=== PATIENT | female | born 1935 | race Caucasian/White ===

== ENCOUNTER 2016-10-14 14:20 | Emergency (ER) | payer OTHER ==
[~2016-10-14] VITALS: Ht 160 cm; Wt 48.9 kg
[~2016-10-14 14:20] MED LIST: NAPROXEN500 MG PO
[2016-10-14 14:53] LABS: HEMATOCRIT 46.9 % (36.0-46.0); MCH 30.6 PG (29.0-34.0); MCHC 32.8 G/DL (30.0-36.0); MCV 93.1 FL (83-99); MEAN PLAT.VOLUME 10.6 uM^3 (9.5-12.4); PLATELET COUNT 233 K/uL (156-360); RBC DIS.WIDTH-CV 12.9 % (11.8-14.6); RBC DIS.WIDTH-SD 44.3 % (39-53); RED BLOOD COUNT 5.04 M/uL (3.80-5.20); WHITE BLOOD COUNT 8.9 K/uL (4.1-10.2)
[2016-10-14 15:29] LABS: CHLORIDE 103 mEq/L (99-109); POTASSIUM 3.6 mEq/L (3.7-5.4); SODIUM 140 mEq/L (136-147)
[2016-10-14 15:30] LABS: GLUCOSE 163 mg/dL (70-99)
[2016-10-14 15:32] LABS: ANION GAP 16 MEQ/L (2-14)
[2016-10-14 15:34] LABS: GFR ESTIMATE (CALCULATED) 24 mL/min/
[2016-10-14 15:35] LABS: UREA NITROGEN (BUN) 55 mg/dL (9-23)
[2016-10-14 16:49] LABS: TOTAL BILIRUBIN 0.7 mg/dL (0.0-1.0)
[2016-10-14 16:50] LABS: ALKALINE PHOSPHATASE 88 IU/L (3-129)
[2016-10-14 16:52] LABS: DIRECT BILIRUBIN 0.2 mg/dL (0.0-0.3)
[2016-10-14 17:45] LABS: INFLUENZA A VIRAL ANTIGEN NEGATIVE; INFLUENZA B VIRAL ANTIGEN NEGATIVE
[2016-10-14 18:21] LABS: ADD MIUA? YES; BILIRUBIN NEGATIVE; BLOOD SMALL; COLOR YELLOW ((YELLOW)); GLUCOSE (STRIP) NEGATIVE; KETONES NEGATIVE; LEUKOCYTES NEGATIVE; NITRITE NEGATIVE; PROTEIN (STRIP) 100; SPECIFIC GRAVITY 1.024 (1.000-1.030); UROBILINOGEN 0.2 MG/DL (0.2-1.0)
[2016-10-14 18:44] LABS: BACTERIA RARE /HPF; CALCIUM OXALATE CRYSTALS 1+ /HPF; EPITHELIAL CELLS RARE /HPF; HYALINE CASTS 30-40 /LPF; MUCUS 1+ /LPF; RED BLOOD CELLS 0-5 /HPF (0-5); UCUL ADDED? NO
[2016-10-14] MEDS ORDERED: BENTYL20 MG PO (19:03)
[2016-10-14] MEDS ORDERED: KEFLEX500 MG PO (19:03)
[2016-10-14] MEDS ORDERED: ZOFRAN ODT4 MG PO (19:03)
[2016-10-14 19:16] VITALS: BP 118/79
[2016-10-14] MEDS ORDERED: UNABLE TO RECALL (19:16)
== END 2016-10-14 19:17 | disposition home or self-care (01) ==
LOC: EME 14:20
PROVIDERS: Nurse Practitioner Family
DX: B34.9 Viral infection, unspecified (principal); N39.0 Urinary tract infection, site not specified; I10 Essential (primary) hypertension
CPT/HCPCS: 80048; 80076; 81003; 85027; 87502; 99281; 99284; J2405; J7030